=== PATIENT | female | born 1990 | race Two or more races ===

== ENCOUNTER 2018-02-14 09:32 | Inpatient (IN) | payer OTHER ==
[2018-02-14] MEDS ORDERED: METHYLERGONOVINE 0.2 MG INJ IM (11:00)
[2018-02-14] MEDS ORDERED: OXYTOCIN 30 UNITS/LR 500 ML IV ×2 (11:00)
[2018-02-14] MEDS ORDERED: IBUPROFEN 600 MG TAB PO (11:00)
[2018-02-14] MEDS ORDERED: LIDOCAINE 1% (MPF) 30 ML INJ INJ (11:00)
[2018-02-14] MEDS ORDERED: MISOPROSTOL 200 MCG TAB PR (11:00)
[2018-02-14] MEDS ORDERED: CARBOPROST 250 MCG INJ IM (11:00)
[2018-02-14] MEDS: LACTATED RINGER'S 1,000 ML IV* ×2 (15:49→19:00)
[2018-02-14 16:20] LABS: ADD MAN DIFF? NO
[2018-02-14 16:29] LABS: ABNORMAL IP MESSAGE 1; BASOPHIL # 0.1 10^3/ul (0.0-0.1); BASOPHILS % 0.7 % (0.0-2.0); EOSINOPHILS # 0.1 10^3/ul (0.0-0.5); EOSINOPHILS % 0.7 % (0.0-7.0); HEMATOCRIT 29.7 % (37.0-47.0); HEMOGLOBIN 9.1 g/dl (12.0-16.0); LYMPHOCYTES % 22.7 % (15.0-51.0); MEAN CORPUSCULAR HEMOGLOBIN 18.7 pg (29.0-33.0); MEAN CORPUSCULAR HGB CONC 30.6 g/dl (32.0-37.0); MEAN CORPUSCULAR VOLUME 61.1 fl (82.0-101.0); MONOCYTE # 0.5 10^3/ul (0.3-0.9); MONOCYTES % 5.8 % (0.0-11.0); NEUTROPHIL # 6.2 10^3/ul (1.6-7.5); NEUTROPHILS % 69.2 % (39.0-77.0); PLATELET COUNT 233 10^3/UL (140-415); RED BLOOD COUNT 4.86 10^6/ul (4.20-5.40); RED CELL DISTRIBUTION WIDTH 15.1 % (11.5-14.5)
[2018-02-14 16:34] LABS: POSITIVE DIFF @See below
[2018-02-14 16:40] LABS: INR 0.95; PROTIME 12.8 Sec (11.9-14.9)
[2018-02-14 16:41] LABS: PARTIAL THROMBOPLASTIN TIME 29.6 Sec (23.0-35.0)
[2018-02-14] MEDS: MISOPROSTOL 50 MCG CAPSULE PO ×2 (17:40→21:41)
[2018-02-14 17:46] LABS: HEPATITIS B SURFACE ANTIGEN NEGATIVE (NEGATIVE)
[2018-02-15] MEDS: LACTATED RINGER'S 1,000 ML IV* (03:05)
[2018-02-15] MEDS: CITRIC ACID/NA CITRATE 30 ML CUP PO (04:37)
[2018-02-15] MEDS ORDERED: ONDANSETRON 4 MG INJ (05:00)
[2018-02-15] MEDS ORDERED: morphine SULFATE/PF (10 MG/10 ML) INJ (05:00)
[2018-02-15] MEDS ORDERED: BUPIVACAINE 0.75%/DEXT (SPINAL) 2 ML INJ (05:00)
[2018-02-15] MEDS ORDERED: METOCLOPRAMIDE 10 MG INJ (05:00)
[2018-02-15] MEDS ORDERED: KETOROLAC 30 MG INJ (05:11)
[2018-02-15] MEDS ORDERED: FENTAnyl 50 MCG/ML VIAL (05:28)
[2018-02-15] MEDS ORDERED: OXYTOCIN 30 UNITS/LR 500 ML IV ×2 (06:02→07:30)
[2018-02-15] MEDS ORDERED: morphine (1 MG/ML) 10ML SYRINGE IV ×3 (06:30)
[2018-02-15] MEDS ORDERED: morphine 2 MG INJ IV ×2 (06:30)
[2018-02-15] MEDS ORDERED: NALOXONE (0.4 MG/ML) INJ IV (06:30)
[2018-02-15] MEDS ORDERED: HYDROmorphONE 1 MG/5 ML IV SYRINGE IV ×2 (06:30)
[2018-02-15] MEDS ORDERED: ONDANSETRON 4 MG INJ IV ×2 (06:30)
[2018-02-15] MEDS ORDERED: DIPHENHYDRAMINE 50 MG INJ IV ×2 (06:30)
[2018-02-15] MEDS: OXYTOCIN 30 UNITS/LR 500 ML IV ×2 (06:32→10:08)
[2018-02-15] MEDS: CEFAZOLIN 2 GM/50 ML (PMX) 50 ML IV (06:47)
[2018-02-15] MEDS ORDERED: PROPOFOL 200 MG INJ (07:00)
[2018-02-15] MEDS ORDERED: CARBOPROST 250 MCG INJ IM (07:30)
[2018-02-15] MEDS ORDERED: METHYLERGONOVINE 0.2 MG TAB PO (07:30)
[2018-02-15] MEDS ORDERED: METHYLERGONOVINE 0.2 MG INJ IM (07:30)
[2018-02-15] MEDS ORDERED: MISOPROSTOL 200 MCG TAB PR (07:30)
[2018-02-15] MEDS: KETOROLAC 30 MG INJ IV ×3 (08:21→21:09)
[2018-02-15] MEDS: SENNA/DOCUSATE NA (8.6MG/50MG) TAB PO ×2 (10:07→21:08)
[2018-02-15] MEDS: LANOLIN 7 GM TUBE TOP (10:07)
[2018-02-15 15:21] LABS: RAPID PLASMA REAGIN NONREACTIVE (NR)
[2018-02-15] MEDS: LACTATED RINGER'S 1,000 ML IV ×3 (17:39→23:58)
[2018-02-16] MEDS: morphine 2 MG INJ IV
[2018-02-16] MEDS: KETOROLAC 30 MG INJ IV (03:57)
[2018-02-16] MEDS: SENNA/DOCUSATE NA (8.6MG/50MG) TAB PO ×2 (08:03→21:43)
[2018-02-16] MEDS: IBUPROFEN 800 MG TAB PO ×3 (08:03→21:44)
[2018-02-16 08:45] LABS: ADD MAN DIFF? NO
[2018-02-16 08:51] LABS: WHITE BLOOD COUNT 12.5 10^3/ul (4.8-10.8)
[2018-02-16 08:51] LABS: ABNORMAL IP MESSAGE 1; BASOPHILS % 0.2 % (0.0-2.0); EOSINOPHILS % 0.1 % (0.0-7.0); LYMPHOCYTES # 1.6 10^3/ul (0.8-2.9); LYMPHOCYTES % 12.8 % (15.0-51.0); MEAN CORPUSCULAR HEMOGLOBIN 18.6 pg (29.0-33.0); MEAN CORPUSCULAR HGB CONC 30.5 g/dl (32.0-37.0); MEAN CORPUSCULAR VOLUME 61.1 fl (82.0-101.0); MONOCYTE # 0.6 10^3/ul (0.3-0.9); MONOCYTES % 4.5 % (0.0-11.0); NEUTROPHIL # 10.2 10^3/ul (1.6-7.5); NEUTROPHILS % 81.4 % (39.0-77.0); NUCLEATED RED BLOOD CELLS% 0.2 /100WBC (0.0-0.0); PLATELET COUNT 184 10^3/UL (140-415)
[2018-02-16 09:05] LABS: HEMOGLOBIN 6.7 g/dl (12.0-16.0); POSITIVE DIFF @See below
[2018-02-16 09:13] LABS: ANION GAP 4 (5-13); BLOOD UREA NITROGEN 3 mg/dl (7-20); CALCIUM 8.2 mg/dl (8.4-10.2); CARBON DIOXIDE 25 mmol/L (21-31); CHLORIDE 108 mmol/L (97-110); CREATININE 0.47 mg/dl (0.44-1.00); Estimated GFR > 60 mL/min (>60); GLUCOSE 76 mg/dl (70-220); POTASSIUM 3.9 mmol/L (3.5-5.1); SODIUM 137 mmol/L (135-144)
[2018-02-16 10:09] LABS: ANISOCYTOSIS 3+ (0-0); BAND NEUTROPHILS #M 0.3 10^3/ul (0.0-0.6); BAND NEUTROPHILS % (M) 3 % (0-4); BASOPHIL #M 0.1 10^3/ul (0.0-0.0); BASOPHILS % (M) 1 % (0-2); GIANT THROMBO% (M) 1 % (0-0); LYMPHOCYTES #M 0.7 10^3/ul (0.8-2.9); LYMPHOCYTES % (M) 6 % (15-51); MICROCYTOSIS 3+ (0-0); MONOCYTE #M 0.1 10^3/ul (0.3-0.9); MONOCYTES % (M) 1 % (0-11); OVALOCYTES 1+ (0-0); PLATELET ESTIMATE NORMAL; POIKILOCYTOSIS 2+ (0-0); POLYCHROMASIA 2+ (0-0); PROMYELOCYTES #M 0.1 10^3/ul (0-0); PROMYELOCYTES % (M) 1 % (0-0); SEGMENTED NEUTROPHILS (M) % 88 % (39-77); SMUDGE%M 3 % (0-0); TARGET CELLS 1+ (0-0); TEAR DROP CELLS 1+ (0-0)
[2018-02-16] MEDS: HYDROCODONE/APAP (5/325) TAB PO ×2 (10:22→14:27)
[2018-02-16] MEDS: FERROUS SULFATE (EC) 325 MG TAB PO ×2 (12:30→21:43)
[2018-02-17] MEDS: HYDROCODONE/APAP (5/325) TAB PO ×2 (00:55→11:02)
[2018-02-17] MEDS: IBUPROFEN 800 MG TAB PO ×2 (05:35→13:39)
[2018-02-17 08:37] LABS: ABNORMAL IP MESSAGE 1; HEMATOCRIT 20.8 % (37.0-47.0); MEAN CORPUSCULAR HEMOGLOBIN 18.5 pg (29.0-33.0); MEAN CORPUSCULAR HGB CONC 30.3 g/dl (32.0-37.0); MEAN CORPUSCULAR VOLUME 61.2 fl (82.0-101.0); NUCLEATED RED BLOOD CELLS% 0.2 /100WBC (0.0-0.0); PLATELET COUNT 209 10^3/UL (140-415); RED CELL DISTRIBUTION WIDTH 14.8 % (11.5-14.5)
[2018-02-17 08:37] LABS: WHITE BLOOD COUNT 12.8 10^3/ul (4.8-10.8)
[2018-02-17] MEDS: FERROUS SULFATE (EC) 325 MG TAB PO ×3 (08:50→21:25)
[2018-02-17] MEDS: SENNA/DOCUSATE NA (8.6MG/50MG) TAB PO ×2 (08:51→21:25)
[2018-02-17 09:06] LABS: POSITIVE DIFF @See below
[2018-02-17 09:08] LABS: ADD MAN DIFF? YES; HEMOGLOBIN 6.3 g/dl (12.0-16.0)
[2018-02-17 10:37] LABS: BAND NEUTROPHILS #M 0.2 10^3/ul (0.0-0.6); BAND NEUTROPHILS % (M) 2 % (0-4); BASOPHIL #M 0.1 10^3/ul (0.0-0.0); BASOPHILS % (M) 1 % (0-2); EOSINOPHILS % (M) 1 % (0-7); GIANT THROMBO% (M) 7 % (0-0); LYMPHOCYTES #M 1.4 10^3/ul (0.8-2.9); LYMPHOCYTES % (M) 11 % (15-51); MONOCYTE #M 0.5 10^3/ul (0.3-0.9); MONOCYTES % (M) 4 % (0-11); PLATELET ESTIMATE NORMAL; PROMYELOCYTES #M 0.1 10^3/ul (0-0); PROMYELOCYTES % (M) 1 % (0-0); SEG NEUT #M 10.3 10^3/ul (1.6-7.5); SEGMENTED NEUTROPHILS (M) % 80 % (39-77); SMUDGE%M 8 % (0-0)
[2018-02-18] MEDS: IBUPROFEN 800 MG TAB PO ×3 (00:03→22:08)
[2018-02-18] MEDS: HYDROCODONE/APAP (5/325) TAB PO ×4 (01:08→16:07)
[2018-02-18] MEDS: MEASLES,MUMPS,RUBELLA VACCINE INJ SC* (09:00)
[2018-02-18] MEDS: DIPHTH/TET/ACEL PERTUSS (ADULT) 0.5 ML VIAL IM* (09:00)
[2018-02-18] MEDS: SENNA/DOCUSATE NA (8.6MG/50MG) TAB PO ×2 (09:00→22:03)
[2018-02-18 09:18] LABS: ABNORMAL IP MESSAGE 1; HEMATOCRIT 21.9 % (37.0-47.0); MEAN CORPUSCULAR HEMOGLOBIN 18.6 pg (29.0-33.0); MEAN CORPUSCULAR HGB CONC 30.1 g/dl (32.0-37.0); MEAN CORPUSCULAR VOLUME 61.9 fl (82.0-101.0); MEAN PLATELET VOLUME 11.9 fl (7.4-10.4); NUCLEATED RED BLOOD CELLS% 0.4 /100WBC (0.0-0.0); PLATELET COUNT 253 10^3/UL (140-415); RED BLOOD COUNT 3.54 10^6/ul (4.20-5.40)
[2018-02-18 09:19] LABS: POSITIVE DIFF @See below
[2018-02-18 09:21] LABS: HEMOGLOBIN 6.6 g/dl (12.0-16.0)
[2018-02-18 09:22] LABS: ADD MAN DIFF? YES
[2018-02-18 09:45] LABS: ANISOCYTOSIS 3+ (0-0); BASOPHIL #M 0.1 10^3/ul (0.0-0.0); BASOPHILS % (M) 1 % (0-2); EOSINOPHILS % (M) 2 % (0-7); LYMPHOCYTES #M 1.6 10^3/ul (0.8-2.9); LYMPHOCYTES % (M) 13 % (15-51); METAMYELOCYTES #M 0.1 10^3/ul (0.0-0.0); METAMYELOCYTES %M 1 % (0-0); MICROCYTOSIS 3+ (0-0); MONOCYTE #M 0.5 10^3/ul (0.3-0.9); MONOCYTES % (M) 4 % (0-11); MYELOCYTES #M 0.1 10^3/ul (0.0-0.0); MYELOCYTES % (M) 1 % (0-0); OVALOCYTES 1+ (0-0); PLATELET ESTIMATE NORMAL; POIKILOCYTOSIS 2+ (0-0); POLYCHROMASIA 1+ (0-0); SEGMENTED NEUTROPHILS (M) % 78 % (39-77); SMUDGE%M 6 % (0-0); TEAR DROP CELLS 1+ (0-0)
[2018-02-18] MEDS: FERROUS SULFATE (EC) 325 MG TAB PO ×3 (10:40→22:03)
[2018-02-18] MEDS ORDERED: DIPHENHYDRAMINE 25 MG CAP PO (18:30)
[2018-02-19] MEDS: ACETAMINOPHEN 325 MG TAB PO (00:58)
[2018-02-19 01:34] LABS: IMMEDIATE SPIN CROSSMATCH 1 2
[2018-02-19] MEDS: SOD CHLORIDE 0.9% 1,000 ML IV ×2 (02:49→06:30)
[2018-02-19] MEDS: IBUPROFEN 800 MG TAB PO (06:18)
[2018-02-19 08:19] LABS: ADD MAN DIFF? NO
[2018-02-19 08:21] LABS: WHITE BLOOD COUNT 9.5 10^3/ul (4.8-10.8)
[2018-02-19 08:21] LABS: ABNORMAL IP MESSAGE 1; BASOPHILS % 0.3 % (0.0-2.0); EOSINOPHILS # 0.5 10^3/ul (0.0-0.5); EOSINOPHILS % 4.7 % (0.0-7.0); HEMATOCRIT 26.3 % (37.0-47.0); LYMPHOCYTES # 1.8 10^3/ul (0.8-2.9); LYMPHOCYTES % 19.2 % (15.0-51.0); MEAN CORPUSCULAR HEMOGLOBIN 20.2 pg (29.0-33.0); MEAN CORPUSCULAR HGB CONC 30.4 g/dl (32.0-37.0); MEAN CORPUSCULAR VOLUME 66.4 fl (82.0-101.0); MONOCYTE # 0.6 10^3/ul (0.3-0.9); MONOCYTES % 5.8 % (0.0-11.0); NEUTROPHIL # 6.4 10^3/ul (1.6-7.5); NEUTROPHILS % 67.2 % (39.0-77.0); NUCLEATED RED BLOOD CELLS # 0.1 10^3/ul (0.0-0.0); NUCLEATED RED BLOOD CELLS% 0.5 /100WBC (0.0-0.0); PLATELET COUNT 289 10^3/UL (140-415); RED BLOOD COUNT 3.96 10^6/ul (4.20-5.40); RED CELL DISTRIBUTION WIDTH 20.7 % (11.5-14.5)
[2018-02-19 08:33] LABS: POSITIVE DIFF @See below
[2018-02-19] MEDS: SENNA/DOCUSATE NA (8.6MG/50MG) TAB PO (09:31)
[2018-02-19] MEDS: FERROUS SULFATE (EC) 325 MG TAB PO ×2 (09:32→12:06)
[2018-02-19] MEDS: HYDROCODONE/APAP (5/325) TAB PO (12:06)
== END 2018-02-19 13:15 | disposition home or self-care (01) | DRG 788 ==
LOC: OBT 09:32 → L-D 09:34 → PP1 02-15 08:34 → OBT 10:50 → L-D 10:58
PROVIDERS: Obstetrics & Gynecology
PROC: 10D00Z1 Extraction of Products of Conception, Low, Open Approach (ICD-10-PCS; principal; 2018-02-16)
PROC: 30233N1 Transfusion of Nonautologous Red Blood Cells into Peripheral Vein, Percutaneous Approach (ICD-10-PCS; 2018-02-19)
DX: O36.63X0 Maternal care for excessive fetal growth, third trimester, not applicable or unspecified (principal); O99.02 Anemia complicating childbirth; D50.9 Iron deficiency anemia, unspecified; O89.4 Spinal and epidural anesthesia-induced headache during the puerperium; Z37.0 Single live birth; Z3A.40 40 weeks gestation of pregnancy
CPT/HCPCS: 36430; 76815; 76818; 80048; 85025; 85610; 85730; 86592; 86644; 86850; 86900; 86901; 86920; 87340; 90715; 99464